=== PATIENT | male | born 1960 | race Caucasian/White ===

== ENCOUNTER 2017-06-03 15:01 | Emergency (ER) | payer OTHER ==
[~2017-06-03] VITALS: Ht 177.8 cm; Wt 70.0 kg
[~2017-06-03 15:01] MED LIST: ASPIRIN EC325 MG PO; NICOTINE PATCH1 EAC2 TD; NO HOME MEDS; SENNA-TIME S T1 EACH PO; TYLENOL REGULA325 MG PO; VITAMIN B-1100 MG PO
[2017-06-03 15:28] VITALS: BP 119/70
== END 2017-06-03 15:28 | disposition left against medical advice (07) ==
LOC: EME 15:01
DX: F10.99 Alcohol use, unspecified with unspecified alcohol-induced disorder (principal); Z53.21 Procedure and treatment not carried out due to patient leaving prior to being seen by health care provider

== ENCOUNTER 2017-10-04 21:28 | Emergency (ER) | payer SELFPAY ==
[~2017-10-04] VITALS: Ht 175.3 cm; Wt 81.8 kg
[2017-10-04 21:34] VITALS: BP 123/101
== END 2017-10-05 00:45 | disposition left against medical advice (07) ==
LOC: EME 21:28
DX: F10.129 Alcohol abuse with intoxication, unspecified (principal); Z53.21 Procedure and treatment not carried out due to patient leaving prior to being seen by health care provider